=== PATIENT | male | born 1980 | race African-American/Black ===

== ENCOUNTER 2023-05-29 22:48 | Emergency (ER) | payer OTHER ==
[2023-05-29 23:05] VITALS: BP 127/85; PULSE 97; RESP 20; TEMP 98.6; BMI 32.7
[2023-05-29] MEDS: ONDANSETRON *ODT* 4 MG TABLET SL ONE (23:45)
[2023-05-30] MEDS ORDERED: ACETAMINOPHEN INJECTION 100 ML IVPB ONE (00:08)
[2023-05-30] MEDS: LACTATED RINGERS SOLUTION 1000 ML INFUS.BAG IV ONE (00:31)
[2023-05-30] MEDS: ACETAMINOPHEN 1000 MG/100 ML BAG IVPB ONE (00:31)
== END 2023-05-30 01:42 | disposition home or self-care (01) ==
LOC: JER 22:48
PROC: 3E033NZ Introduction of Analgesics, Hypnotics, Sedatives into Peripheral Vein, Percutaneous Approach (ICD-10-PCS; principal; 2023-05-30)
DX: T62.91XA Toxic effect of unspecified noxious substance eaten as food, accidental (unintentional), initial encounter (principal); R11.2 Nausea with vomiting, unspecified; R19.7 Diarrhea, unspecified; R68.83 Chills (without fever)
CPT/HCPCS: 0241U-QW; 99284-25; J0131; Q0162